=== PATIENT | male | born 1970 | race Caucasian/White ===

== ENCOUNTER 2018-09-01 12:11 | Emergency (ER) | payer OTHER ==
[~2018-09-01] VITALS: Ht 180.3 cm; Wt 72.6 kg
[2018-09-01 12:37] VITALS: BP 125/60
== END 2018-09-01 17:45 | disposition left against medical advice (07) ==
LOC: ER 12:23
DX: R10.9 Unspecified abdominal pain (principal); Z53.21 Procedure and treatment not carried out due to patient leaving prior to being seen by health care provider
CPT/HCPCS: 93005